=== PATIENT | female | born 1980 | race African-American/Black ===

== ENCOUNTER 2023-03-06 00:21 | Emergency (ER) | payer MEDICAID ==
[~2023-03-06] VITALS: Ht 167.6 cm; Wt 117.2 kg
[2023-03-06 00:44] VITALS: BP 159/76
[2023-03-06] MEDS ORDERED: ACET-1158 PO (00:56)
[2023-03-06] MEDS ORDERED: COR10OTS LEFT EAR (00:56)
[2023-03-06] MEDS ORDERED: KETOROLAC TROMETH 60MG/2ML VIAL IM ONE (01:00)
[2023-03-06] MEDS ORDERED: DexAMETHasone SOD PHOS 10MG/1ML VIAL INJ IM ONE (01:00)
== END 2023-03-06 01:07 | disposition home or self-care (01) ==
LOC: ER 00:21
DX: H60.92 Unspecified otitis externa, left ear (principal); J02.8 Acute pharyngitis due to other specified organisms; E66.01 Morbid (severe) obesity due to excess calories; Z68.41 Body mass index [BMI] 40.0-44.9, adult
CPT/HCPCS: 96372; 99284; J1100; J1885